=== PATIENT | male | born 1950 | race Caucasian/White ===

== ENCOUNTER 2024-12-20 10:13 | Emergency (ER) | payer MEDICARE, BC | END 2024-12-20 11:15 | disposition home or self-care (01) | LOC: JD.ED 10:13 | DX: S63.501A Unspecified sprain of right wrist, initial encounter (principal); W18.40XA Slipping, tripping and stumbling without falling, unspecified, initial encounter | CPT/HCPCS: 73110-26-RT; 73110-RT; 99283 ==